=== PATIENT | male | born 1980 | race Caucasian/White ===

== ENCOUNTER 2017-08-09 07:42 | Emergency (ER) | payer BC ==
[~2017-08-09] VITALS: Ht 175.3 cm; Wt 90.7 kg
[~2017-08-09 07:42] MED LIST: DOXYCYCLINE HY100 MG PO; FLOMAX0.4 MG PO; NAPROSYN500 MG PO; NORCO 5-325 TA1 EACH PO
[2017-08-09] MEDS ORDERED: ULTRAM50 MG PO (09:05)
[2017-08-09] MEDS ORDERED: IBUPROFEN600 MG PO (09:05)
== END 2017-08-09 09:28 | disposition home or self-care (01) ==
LOC: ED 07:42
DX: R09.1 Pleurisy (principal); M54.6 Pain in thoracic spine; F17.200 Nicotine dependence, unspecified, uncomplicated
CPT/HCPCS: 71046; 80053; 81001; 85025; 85379; 96374; 99283; J1885